=== PATIENT | male | born 1975 | race Caucasian/White ===

== ENCOUNTER 2025-04-24 10:36 | Emergency (ER) | payer OTHER, SELFPAY ==
[2025-04-24] VITALS (28 sets, daily range): BP systolic 105–154; BP diastolic 78–109; PULSE 63–130; RESP 9–20; TEMP 36.7–37.1; O2SAT 97–100; BMI 25.7
--- NOTE | 2025-04-24 10:42 | ECG_ITS ---
APPROVED REPORT Exam: Resting ECG HR:121 bpm ECG Measurements Heart Rate 121 AXES QRSd 114 QRS 92 QT 310 T 44 QTc 382 Conclusion ATRIAL FLUTTER/TACHYCARDIA WITH RAPID VENTRICULAR RESPONSE BORDERLINE RIGHT AXIS DEVIATION [QRS AXIS > 90] MODERATE INTRAVENTRICULAR CONDUCTION DELAY [110+ ms QRS DURATION] NONSPECIFIC ST & T-WAVE ABNORMALITY ABNORMAL RHYTHM ECG UNCONFIRMED REPORT Electronically signed by : ENOC QUEEN, 04/26/2025 04:21:15
[2025-04-24] MEDS: MIDAZOLAM 2MG/2ML VIAL 1 MG IV (10:49)
--- NOTE | 2025-04-24 10:58 | ECG_ITS ---
APPROVED REPORT Exam: Resting ECG HR:113 bpm ECG Measurements Heart Rate 113 AXES QRSd 132 QRS 94 QT 312 T 15 QTc 379 Conclusion ATRIAL FLUTTER/TACHYCARDIA WITH RAPID VENTRICULAR RESPONSE BORDERLINE RIGHT AXIS DEVIATION [QRS AXIS > 90] INTRAVENTRICULAR CONDUCTION DELAY [130+ ms QRS DURATION] ABNORMAL ECG UNCONFIRMED REPORT Electronically signed by : ENOC QUEEN, 04/26/2025 04:20:33
--- NOTE | 2025-04-24 11:03 | ED_ITS ---
Discharge Plan Disposition Patient Disposition: Home, Self-Care Condition: Good Referrals Follow up/Referrals: Messi Crane MD [Staff Physician, Oncology] - See instructions Herber Manzano MD [Staff Physician, Cardiology] - See instructions Provider,MD Justin [Primary Care Provider, Medical] - See instructions Activity Restrictions/Add. Instructions Additional Instructions/Restrictions: I have sent you with a referral to Dr. Manzano which you should follow-up for your atrial fibrillation. You can continue your medications as prescribed including your flecainide and metoprolol as needed. I have also sent you with a referral to hematology for your elevated hemoglobin. Return to the emergency department if your symptoms return or worsen or if you have any other acute concerns. Clinical Impressions Clinical Impression: A-fib Instructions Patient Instructions: DI for Moderate Sedation Print Language Print Language: Mauritian Discharge ED Provider: Elke Sanchez Adult HPI General Chief complaint: Arrhythmia/Palpitations Stated complaint: Ref: Hebert Gibson. A-Fib Time Seen by Provider: 04/24/25 10:40 Mode of Arrival: Ambulatory Source of Information: Patient Description of Symptoms (Recalled from ER Triage Doc. by RN): patient states he has history of afib since 2020, he has felt fluttering in his chest since 730 friday evening and he states he usually covernts on his own but this time he has not been able to. patient reports shortness of breath as well. he is extremily anxious over getting iv at this time History of Present Illness HPI narrative: Patient is a 49-year-old male with no significant past medical history who presents to the emergency department with palpitations. Patient states that he has a history of A-fib and has previously gone into A-fib for no more than 4 hours which has spontaneously resolved on its own. Patient states that he keeps abdominal and can tell exactly when he goes in and out of his irregular rhythm. Patient states that he has seen cardiology 4 years ago and has as needed metoprolol and flecainide at home. Patient states that he has never had to come to the emergency department for his A-fib in the past. Patient states that he does not have any chest pain, is not feeling short of breath. Patient has not had any nausea vomiting diarrhea. Patient has not had any recent infectious symptoms. Patient does not have any other medical problems. Patient states that he went into his irregular rhythm around 7 PM last night. Patient states that since it did not resolve he came here to the emergency department today. Related Data Allergies Allergy/AdvReac Type Severity Reaction Status Date / Time No Known Allergies Allergy Verified 04/24/25 10:53 [facility] Disclaimer: The information contained in this section may have been updated after the patient was seen, as this information can be updated by other users. Social History Smoking Status: Never smoker alcohol intake: never current occupational status: employed Travel in the last 8 weeks?: None ROS Obtained: Yes All systems reviewed & no additional complaints except as documented and Yes Systems reviewed as appropriate & no additional complaints except as documented Physical Exam General General appearance: alert and in no apparent distress Head Head exam: atraumatic, normocephalic and normal inspection Eye Eye exam: Present normal appearance, PERRL and EOMI; Absent scleral icterus ENT ENT exam: Present normal exam and normal external ear exam Neck Neck exam: Present normal inspection and full ROM Chest Chest inspection: Present normal inspection and symmetric chest wall rise Respiratory Respiratory exam: Present normal lung sounds bilaterally; Absent respiratory distress or wheezes Cardiovascular Cardiovascular exam: Present tachycardia, irregular rhythm and normal heart sounds Abdominal Exam Abdominal exam: Present soft and distention; Absent tenderness, guarding or rebound Extremities Exam Extremities exam: Present normal inspection and full ROM Back Exam Back exam: Present normal inspection and full ROM Neurological Exam Neurological exam: Present alert and oriented X3 Psychiatric Psychiatric exam: Present normal affect and normal mood Skin Skin exam: Present warm and dry Medical Decision Making Medical Records Medical records reviewed: Yes I reviewed the patient's medical records. Screening: Per USPSTF and CDC recommendations, given the prevalence of disease in our region, it is our hospital?s policy to screen for HIV and viral Hepatitis for all patients aged 18 and over and those with ongoing risk factors. Jordan Inquiry Pt receiving controlled substance: No Vital Signs: 04/24/25 10:47 04/24/25 11:00 04/24/25 11:30 Temperature 98.4 F Temperature Source Oral Pulse Rate 85 Pulse Rate [Right Radial] 127 H Respiratory Rate 16 9 L 11 L Blood Pressure 106/87 L 105/86 L Blood Pressure [Right Arm] 154/109 H Blood Pressure Mean [Right Arm] 124 Blood Pressure Source [Right Arm] Automatic Cuff Blood Pressure Position [Right Arm] Sitting 02 Sat by Pulse Oximetry 99 97 Oxygen Delivery Method Room Air Oxygen Flow Rate (LPM) 04/24/25 12:00 04/24/25 12:30 04/24/25 12:37 Temperature 98.1 F Temperature Source Oral Pulse Rate 93 H 122 H Pulse Rate [Right Radial] 127 H Respiratory Rate 19 10 L 13 Blood Pressure 122/95 H 138/101 H Blood Pressure [Right Arm] 138/101 H Blood Pressure Mean [Right Arm] 113 Blood Pressure Source [Right Arm] Automatic Cuff Blood Pressure Position [Right Arm] Supine 02 Sat by Pulse Oximetry 97 100 99 Oxygen Delivery Method Nasal Cannula Oxygen Flow Rate (LPM) 2 04/24/25 12:40 04/24/25 12:40 04/24/25 12:45 Temperature 98.1 F 98.1 F Temperature Source Oral Oral Pulse Rate 130 H Pulse Rate [Right Radial] 128 H 128 H Respiratory Rate 16 11 L 16 Blood Pressure 145/98 H Blood Pressure [Right Arm] 143/94 H 145/98 H Blood Pressure Mean [Right Arm] 110 113 Blood Pressure Source [Right Arm] Automatic Cuff Automatic Cuff Blood Pressure Position [Right Arm] Supine Supine 02 Sat by Pulse Oximetry 100 100 100 Oxygen Delivery Method Nasal Cannula Nasal Cannula Oxygen Flow Rate (LPM) 2 2 04/24/25 12:45 04/24/25 12:50 04/24/25 12:50 Temperature 98.1 F Temperature Source Oral Pulse Rate 120 H 68 Pulse Rate [Right Radial] 80 Respiratory Rate 11 L 18 14 Blood Pressure 152/96 H 144/99 H Blood Pressure [Right Arm] 152/96 H Blood Pressure Mean [Right Arm] 114 Blood Pressure Source [Right Arm] Automatic Cuff Blood Pressure Position [Right Arm] Supine 02 Sat by Pulse Oximetry 100 98 99 Oxygen Delivery Method Nasal Cannula Oxygen Flow Rate (LPM) 2 04/24/25 12:55 04/24/25 12:55 04/24/25 12:58 Temperature 98.1 F 98.1 F Temperature Source Oral Oral Pulse Rate 67 Pulse Rate [Right Radial] 81 80 Respiratory Rate 18 20 16 Blood Pressure 138/96 H Blood Pressure [Right Arm] 144/99 H 146/98 H Blood Pressure Mean [Right Arm] 114 114 Blood Pressure Source [Right Arm] Automatic Cuff Automatic Cuff Blood Pressure Position [Right Arm] Supine Supine 02 Sat by Pulse Oximetry 100 99 99 Oxygen Delivery Method Nasal Cannula Room Air Oxygen Flow Rate (LPM) 2 04/24/25 13:00 04/24/25 13:05 04/24/25 13:10 Temperature Temperature Source Pulse Rate 63 Pulse Rate [Right Radial] Respiratory Rate 12 16 10 L Blood Pressure 146/98 H 143/99 H 148/93 H Blood Pressure [Right Arm] Blood Pressure Mean [Right Arm] Blood Pressure Source [Right Arm] Blood Pressure Position [Right Arm] 02 Sat by Pulse Oximetry 98 Oxygen Delivery Method Oxygen Flow Rate (LPM) 04/24/25 13:15 04/24/25 13:20 04/24/25 13:25 Temperature Temperature Source Pulse Rate Pulse Rate [Right Radial] Respiratory Rate 13 10 L 10 L Blood Pressure 144/95 H 136/92 H 127/88 Blood Pressure [Right Arm] Blood Pressure Mean [Right Arm] Blood Pressure Source [Right Arm] Blood Pressure Position [Right Arm] 02 Sat by Pulse Oximetry Oxygen Delivery Method Oxygen Flow Rate (LPM) 04/24/25 13:30 04/24/25 13:35 04/24/25 13:40 Temperature Temperature Source Pulse Rate 76 72 Pulse Rate [Right Radial] Respiratory Rate 16 14 11 L Blood Pressure 125/84 129/84 133/83 Blood Pressure [Right Arm] Blood Pressure Mean [Right Arm] Blood Pressure Source [Right Arm] Blood Pressure Position [Right Arm] 02 Sat by Pulse Oximetry 98 99 Oxygen Delivery Method Oxygen Flow Rate (LPM) 04/24/25 13:45 04/24/25 13:50 04/24/25 13:55 Temperature Temperature Source Pulse Rate Pulse Rate [Right Radial] Respiratory Rate 11 L 11 L 13 Blood Pressure 129/89 127/89 134/85 Blood Pressure [Right Arm] Blood Pressure Mean [Right Arm] Blood Pressure Source [Right Arm] Blood Pressure Position [Right Arm] 02 Sat by Pulse Oximetry 98 Oxygen Delivery Method Oxygen Flow Rate (LPM) 04/24/25 14:00 04/24/25 14:05 04/24/25 14:10 Temperature Temperature Source Pulse Rate 78 81 Pulse Rate [Right Radial] Respiratory Rate 12 12 17 Blood Pressure 123/87 136/82 139/81 Blood Pressure [Right Arm] Blood Pressure Mean [Right Arm] Blood Pressure Source [Right Arm] Blood Pressure Position [Right Arm] 02 Sat by Pulse Oximetry 98 98 98 Oxygen Delivery Method Oxygen Flow Rate (LPM) 04/24/25 14:15 04/24/25 14:57 Temperature 98.8 F Temperature Source Pulse Rate 77 79 Pulse Rate [Right Radial] Respiratory Rate 13 20 Blood Pressure 123/78 120/80 Blood Pressure [Right Arm] Blood Pressure Mean [Right Arm] Blood Pressure Source [Right Arm] Blood Pressure Position [Right Arm] 02 Sat by Pulse Oximetry 98 Oxygen Delivery Method Oxygen Flow Rate (LPM) Lab Data Lab results reviewed: Yes I reviewed the patient's lab results. Lab Results 04/24/25 10:45: WBC 10.9 H, RBC 6.85 H, Hgb 21.4 H, Hct 59.6 H, MCV 87.0, MCH 31.2, MCHC 35.9 H, RDW 13.2, Plt Count 293, MPV 9.7, Neut % (Auto) 59.2, Lymph % (Auto) 30.0, [place] % (Auto) 8.0, Eos % (Auto) 1.2, Baso % (Auto) 1.1, Neut # (Auto) 6.5, Lymph # (Auto) 3.3, [place] # (Auto) 0.9, Eos # (Auto) 0.1, Baso # (Auto) 0.1, D-Dimer 0.30, Sodium 137, Potassium 4.4, Chloride 102, Carbon Dioxide 26, Anion Gap 13.4, BUN 22 H, Creatinine 1.30 H, Estimated Creat Clear 90, Estimated GFR 59, Est GFR ( Amer) 72, Glucose 121 H, Calcium 10.2, Magnesium 2.1, Total Bilirubin 1.7 H, AST 48, ALT 38, Alkaline Phosphatase 84, Troponin I 0.02, Total Protein 8.9 H, Albumin 5.1 H, Globulin 3.8 H, Albumin/Globulin Ratio 1.3, TSH 5.63 H, Free T4 1.04, HCV Ab ALCIRA w/Rflx PCR Qn Negative, HIV Ag/Ab Combo Qual Negative 04/24/25 13:41: Troponin I < 0.01 04/24/25 10:45 04/24/25 10:45 Orders (Tests/Meds): ED MEDICATIONS Discontinued Medications Generic Name Dose Route Start Last Admin Trade Name Freq PRN Reason Stop Dose Admin Etomidate 10 mg 04/24/25 11:58 04/24/25 12:38 Etomidate 40mg/20ml Vial IV 04/24/25 11:59 10 mg ONCE ONE Administration Etomidate 10 mg 04/24/25 12:45 04/24/25 12:45 Etomidate 40mg/20ml Vial IV 04/24/25 12:46 10 mg ONCE ONE Administration Magnesium Sulfate 2 gm in 50 mls @ 50 mls/hr 04/24/25 10:59 04/24/25 11:04 Magnesium Sulfate 2gm/50ml Premix IV 04/24/25 11:58 50 mls/hr ONCE ONE Administration Midazolam HCl 1 mg 04/24/25 10:47 04/24/25 10:49 Midazolam 2mg/2ml Vial IV 04/24/25 10:48 1 mg ONCE ONE Administration Midazolam HCl 2 mg 04/24/25 12:41 04/24/25 12:43 Midazolam 2mg/2ml Vial IV 04/24/25 12:42 2 mg ONCE ONE Administration ORDERS Category Date Time Status CBC w/Auto Diff [Complete Blood Count Auto Diff] Stat Lab 04/24/25 10:45 Completed CMP [Comprehensive Metabolic Panel] Stat Lab 04/24/25 10:45 Completed D-Dimer Stat Lab 04/24/25 10:45 Completed Free T4 (Free Thyroxine) Stat Lab 04/24/25 10:45 Completed HIV Combo Stat Lab 04/24/25 10:45 Completed Hepatitis C Ab Qual. W/ RFX Stat Lab 04/24/25 10:45 Completed MAG [Magnesium] Stat Lab 04/24/25 10:45 Completed TSH [Thyroid Stimulating Hormone] Stat Lab 04/24/25 10:45 Completed Trop I [Troponin I] Stat Lab 04/24/25 10:45 Completed Troponin I Q3H Lab 04/24/25 13:41 Completed Medical Decision Narrative: Patient is an otherwise healthy 49-year-old male with a history of A-fib who presents to the emergency department with concerns for palpitations. On arrival, patient was in A-fib with RVR, vital signs were otherwise unremarkable, patient was hemodynamically stable. Differential includes but not limited to: Dehydration, electrolyte abnormalities, ACS/CT, pulmonary embolism, thyroid disease, amongst others. Labs were reviewed and interpreted by myself, CBC is unremarkable except for mildly elevated hemoglobin of 21. CMP showed mildly elevated creatinine at 1.3 otherwise unremarkable. Thyroid studies were unremarkable. Magnesium was normal. Initial troponin mildly elevated, second troponin less than 0.01. D- dimer normal. Patient's initial EKG showed a flutter heart rate [address] or T wave changes concerning for ischemia. Repeat EKG was obtained which showed similar pattern of atrial flutter with a rate of [address] or T wave changes concerning for ischemia. After lengthy discussion with the patient regarding rate control versus cardioversion, the patient elected to be cardioverted. Patient's symptoms started less than 48 hours ago. Although patient is not anticoagulated given less than 48 hours since symptom onset I felt that cardioversion was appropriate. Patient was given IV etomidate and IV Versed and patient was consciously sedated at the bedside and patient was cardioverted with 200 J. Single cardioversion was done and patient went into normal sinus rhythm. Patient maintained normal sinus rhythm in the emergency department. Patient has a Chadsvasc score of 0 therefore prophylactic anticoagulation for stroke reduction was not felt to be indicated. Patient already with as needed metoprolol and flecainide at home therefore at this time I felt that patient was appropriate for discharge with outpatient follow-up with cardiology. Procedures Miscellaneous Procedure Procedure Performed: Bedside cardioversion was done with 200 J. Synchronized cardioversion for a flutter. Patient was given IV etomidate and IV Versed at bedside. Patient tolerated the procedure well converted to normal sinus rhythm. Critical Care Critical Care Time Critical Care Time: Yes Attestation: On 04/24/25, the high probability of a clinically significant, sudden or life threatening deterioration of the following system(s) required my full and direct attention, intervention and personal management. The time I documented below is in addition to time spent performing reported procedures but includes the following listed in this critical care notation. Total Time Total Critical Care Time: 30
[2025-04-24] MEDS: MAGNESIUM SULFATE IN WATER 2 GM/50 ML PIGGYBACK IV (11:04)
--- OUTSIDE RECORDS SUMMARY | 2025-04-24 11:10 | XMS_ITS | Clinical Summary ---
Author Organization [facility] Address [address] [place] [address] Care Team Providers Care Case Sealer Name Role Phone Gordo Oliveira MD Primary Care Provider [phone] Allergies Active Allergy Reactions Criticality Noted Date Comments Sulfa Antibiotics Hives 10/30/2021 Medications metoprolol tartrate (LOPRESSOR) 25 MG tablet Take 1 tablet by mouth 2 (Two) Times a Day As Needed (palpitations). 180 tablet 3 2 Active flecainide (TAMBOCOR) 150 MG tablet Take 1 tablet by mouth 2 (Two) Times a Day As Needed (palpitations). For Atrial fibrillation 90 tablet 3 2 Active Active Problems Problem Noted Date Diagnosed Date PAF (paroxysmal atrial fibrillation) 01/21/2022 Tachycardia 10/29/2021 Overview (01/18/2022): Holter monitor returned unused Family History Medical History Relation Name Comments Cancer Father No Known Problems Mother Relation Name Status Comments Father Mother Alive Social History Tobacco Use Types Packs/Day Years Used Date Smoking Tobacco: Former Cigarettes Q uit: 2000 Smokeless Tobacco: Former Quit: 2001 Alcohol Use Standard Drinks/Week Comments Yes 0 (1 standard drink = 0.6 oz pur e alcohol) 1 nightly Abuse Screen Answer Date Recorded Unsafe at Home or Work/School Not on file Feels Threatened by Someone? Not on file Does Anyone Keep You from Co ntacting Others or Doint Things Outside the Home? Not on file 07/04/2023 Physical Sign of Abuse Present Not on file 1 Housing Stability Answer Date Recorded Current Living Arrangements Not on file 06/22 Potentially Unsafe Housing Conditions Not on earl e 07/04/2023 Family and Community Support Answer Basim e Recorded Help with Day-to-Day Activities Not on file 07/04/2023 Lonely or Isolated Not on file 07/04/2023 Employment Answer Date Recorded Do you want help finding or keeping work or a luis b? Not on file 07/04/2023 Disabilities Answer Date Recorded Concentrating, Remembering, or Making Decisions Difficulty Not on file 07/04/2023 Doing Errands Independently Difficulty Not on fi le 07/04/2023 Education Answer Date Recorded Help with school or training? Not on file Preferred Language Not on file 07/04/2023 Sex and Gender Information Value Date Recorded Sex Assigned at Not on file Legal Sex Male 4:22 PM EST Gender Identity Not on file Sexual Orientation Not on file Last Filed Vital Signs Vital Sign Reading Time Taken Comments Blood Pressure 126/74 01/24/2022 1:33 PM EDT Pulse 85 01/21/2022 8:39 AM EDT Temperature - - Respiratory Rate - - Oxygen Saturation 96% 01/21/2022 8:39 AM EDT Inhaled Oxygen Concentration - - Weight 95.7 kg (211 lb) 01/24/2022 1:33 PM EDT Height 188 cm (6' 2 ) 01/24/2022 1:33 PM EDT Body Mass Index 27.09 01/24/2022 1:33 PM EDT Plan of Treatment Health Maintenance Due Date Last Done Comments TDAP/TD VACCINES (1 - Tdap) 1996 ANNUAL PHYSICAL 10/29/2021 HEPATITIS C SCREENING 10/29/2021 COLOGUARD 2022 COLON CANCER SCREENING 5 YEA R SIGMOIDOSCOPY 2022 COLONOSCOPY 2022 COLORECTAL CANCER SCREENING 2022 CT COLONOGRAPHY 2022 FECAL OCCULT BLOOD TEST 2022 FIT Testing (1 year) 2022 COVID-19 Vaccine (3 - 2023-2 5 season) 2024 06/28/2021, 05/31/2021 INFLUENZA VACCINE 06/22/2025 Pneumococcal Vaccine 0-49 Aged Out No longer eligible based on patient's age to complete this topic Insurance [facility] PPO Care Teams Case Sealer Relationship Specialty Start Date End Date Gordo Oliveira MD [address] [place] [address] PCP - General Internal Medicine 10/24/21
[2025-04-24 11:11] LABS: Hematocrit 59.6 % (42.0-52.0); Immature Granulocytes % 0.5 %; Mean Corpuscular HGB Conc 35.9 g/dL (31.8-35.4); Mean Corpuscular Hemoglobin 31.2 pg (27.0-31.2); Mean Corpuscular Volume 87.0 fl (80-94); Nucleated Red Blood Cells % 0 %; Platelet Count 293 K/mm3 (142-424); Red Blood Count 6.85 M/mm3 (4.60-6.20); Red Cell Distribution Width-SD 38.8 fL; White Blood Count 10.9 K/mm3 (4.8-10.8)
[2025-04-24 11:19] LABS: Alanine Aminotransferase 38 U/L (12-78); Albumin Level 5.1 g/dl (3.5-5.0); Albumin/Globulin Ratio 1.3 (1.1-1.8); Alkaline Phosphatase 84 U/L (38-126); Anion Gap 13.4 mEq/L (5-15); Aspartate Amino Transferase 48 U/L (17-59); Bilirubin,Total 1.7 mg/dl (0.2-1.3); Blood Urea Nitrogen 22 mg/dl (9-20); Calcium 10.2 mg/dl (8.4-10.2); Carbon Dioxide 26 mmol/L (22.0-30.0); Chloride 102 mmol/L (98-107); Creatinine Clearance Estimated 90 mL/min (50-200); Creatinine,Serum 1.30 mg/dl (0.66-1.25); Estimated Glomerular Filt Rate 59 ml/min (>60); GFR (African American) 72 ML/MIN (>60); Globulin 3.8 g/dL (1.3-3.2); Glucose 121 mg/dl (74-100); Magnesium 2.1 mg/dl (1.6-2.3); Potassium 4.4 mmoL/L (3.5-5.1); Sodium 137 mmol/L (136-145); Total Protein,Serum 8.9 g/dl (6.3-8.2)
[2025-04-24 11:24] LABS: D-Dimer 0.30 ug/mL (0.0-0.5)
[2025-04-24 11:31] LABS: Troponin I 0.02 ng/ml (0.00-0.034)
[2025-04-24 11:38] LABS: Hemoglobin 21.4 g/dL (14.1-18.0)
[2025-04-24 11:49] LABS: Thyroid Stimulating Hormone 5.63 uIU/mL (0.465-4.68)
[2025-04-24] MEDS: ETOMIDATE 40MG/20ML VIAL 10 MG IV ×2 (12:38→12:45)
[2025-04-24] MEDS: MIDAZOLAM 2MG/2ML VIAL 2 MG IV (12:43)
--- NOTE | 2025-04-24 12:48 | ECG_ITS ---
APPROVED REPORT Exam: Resting ECG HR:84 bpm ECG Measurements Heart Rate 84 AXES AZ 157 P 75 QRSd 113 QRS 86 QT 377 T 43 QTc 418 Conclusion SINUS RHYTHM RIGHT ATRIAL ENLARGEMENT [0.3mV P-WAVE] MODERATE INTRAVENTRICULAR CONDUCTION DELAY [110+ ms QRS DURATION] ABNORMAL ECG UNCONFIRMED REPORT Electronically signed by : ENOC QUEEN, 04/26/2025 04:20:43
[2025-04-24 12:49] LABS: Hepatitis C Ab Qual. W/ RFX NEGATIVE (Negative)
[2025-04-24 13:27] LABS: Free T4 (Free Thyroxine) 1.04 ng/dl (0.78-2.19)
[2025-04-24 14:19] LABS: Troponin I < 0.01 ng/ml (0.00-0.034)
== END 2025-04-24 15:00 | disposition home or self-care (01) ==
PROVIDERS: Emergency Provider Student in an Organized Health Care Education/Training Program
DX: I48.91 Unspecified atrial fibrillation (principal); F41.9 Anxiety disorder, unspecified
CPT/HCPCS: 80053; 83735; 84439; 84443; 84484; 85025; 85378; 86803; 87389; 93005; 96365; 96375; 96376; 99152; 99291; J2250; J3475

== ENCOUNTER 2025-05-04 11:58 | Outpatient (CLI) | payer OTHER, SELFPAY ==
--- OUTSIDE RECORDS SUMMARY | 2025-05-04 11:59 | XMS_ITS | Continuity of Care Document ---
Author Organization [facility]. If a dditional information is needed, contact Health Information Management at [phone] Address [address] [place] [address] Phone Care Team Providers Care Auto Vinyl Top Installer Name Role Phone Unavailable Unavailable Unavailable Allergies and Adverse Reactions No Known Allergies(Allergy) Onset: 01-Jul-2014 Medications No Home Medications_[id number] Start:01-Jul-2014
--- OUTSIDE RECORDS SUMMARY | 2025-05-04 12:01 | XMS_ITS | Encounter Summary ---
Author Organization [facility] Address [address] [place] [address] Care Team Providers Care Acoustic Intelligence Specialist Name Role Phone Unavailable Primary Care Provider Unavailabl e Reason for Visit * Reason Onset Date Comments NEW PATIENT APPOINTMENT 04/29/2025 Encounter Details Date Type Department Care Team ([facility] Contact Info) Description 04/29/2025 Telephone [facility] - Cardiovascular Medicine [address] [facility] [address] [place] [address] Markie Salgado MD [address] [facility] [address] [place] [address] NEW PATIENT APPOINTMENT Social History Tobacco Use Types Packs/Day Years Used Date Smoking Tobacco: Never Assessed Sex and Gender Information Value Date Recorded Sex Assigned at Not on file Legal Sex Male 8:17 AM EDT Gender Identity Not on file Sexual Orientation Not on file documented as of this encounter Miscellaneous Notes * Telephone Encounter - April Monreal - 04/29/2025 9:06 AM EDT Called pt and lvm for pt to call us back for New Pt appt from referral received for EP for possibleAblation documented in this encounter Plan of Treatment Upcoming Encounters Date Type Department Care Team ([facility] Contact Info) Description 06/07/2025 2:45 PM EDT Office Visit [facility] - Cardiovascular Medicine [address] [place] [address] Kota Zuniga MD [address] [facility], [address] [address] documented as of this encounter Visit Diagnoses Not on filedocumented in this encounter
--- OUTSIDE RECORDS SUMMARY | 2025-05-04 12:01 | XMS_ITS | Clinical Summary ---
Author Organization [facility] Address [address] [place] [address] Care Team Providers Care Modeling Agent Name Role Phone Pcp, Pt Declined Primary Care Provider Unavailab le Encounters Date Type Department Care Team Description 04/29/2025 Telephone [facility] - Cardiovascular Medicine [address] [phone] Markie Salgado MD NEW PATIENT APPOINTMENT from Last 3 Months Social History Tobacco Use Types Packs/Day Years Used Date Smoking Tobacco: Never Assessed Sex and Gender Information Value Date Recorded Sex Assigned at Not on file Legal Sex Male 8:17 AM EDT Gender Identity Not on file Sexual Orientation Not on file Plan of Treatment Upcoming Encounters Date Type Department Care Team (Late st Contact Info) Description 06/07/2025 2:45 PM EDT Office Visit [facility] - Cardiovascular Medicine [address] [place] [address] [phone] Kota Zuniga MD [address] [facility] [address] [place] [address] Health Maintenance Due Date Last Done Comments CT Colonography 1977 Colonoscopy 1977 Colorectal Cancer Screening 1977 FIT-DNA (Cologuard) 1977 FIT 1977 FOBT 1977 HIV Screening 1977 Hepatitis C Screening 1977 Lipid Panel 1977 Sigmoidoscopy 1977 MMR Vaccines (1 of 1 - Standard series) 1978 Hepatitis B Screening 12/31/1995 DTaP/Tdap/Td Vaccines (1 - Tdap) 1996 Hepatitis B Vaccines (1 of 3 - 19+ 3-dose series) 1996 COVID-19 Vaccine (3 - 2023-2 5 season) 2024 06/28/2021, 05/31/2021 Depression Risk Screening 09/22/2024 SDOH Screening 09/22/2024 Influenza Vaccine (#1) 2025 Zoster Vaccines (1 of 2) 12/31/2027 HIB Vaccines Aged Out No longer eligi ble based on patient's age to complete this topic HPV Vaccines Aged Out No longer eligi ble based on patient's age to complete this topic Hepatitis A Vaccines Aged Out No long er eligible based on patient's age to complete this topic IPV Vaccines Aged Out No longer eligi ble based on patient's age to complete this topic Meningococcal B Vaccine Aged Out No l onger eligible based on patient's age to complete this topic Meningococcal Vaccine Aged Out No bo verna eligible based on patient's age to complete this topic Pneumococcal Vaccine Aged Out No long er eligible based on patient's age to complete this topic Rotavirus Vaccines Aged Out No longer eligible based on patient's age to complete this topic Insurance [facility] [address] Care Teams Modeling Agent Relationship Specialty Start Date End Date Pcp, Pt Declined PCP - General 05/03/25
--- OUTSIDE RECORDS SUMMARY | 2025-05-04 12:01 | XMS_ITS | Clinical Summary ---
Author Organization [facility] Address [address] [place] [address] Care Team Providers Care Nematology Teacher Name Role Phone Gordo Oliveira MD Primary Care Provider [phone] Allergies Active Allergy Reactions Criticality Noted Date [...] patient's age to complete this topic Insurance [facility] PPO Care Teams Nematology Teacher Relationship Specialty Start Date End Date Gordo Oliveira MD [address] [place] [address] PCP - General Internal Medicine 10/24/21
[2025-05-04 12:06] VITALS: BMI 26.6
[2025-05-04 12:30] VITALS: BP 123/80; PULSE 58; RESP 16; O2SAT 99
[2025-05-04 12:33] VITALS: BP 103/69; PULSE 61; RESP 16; O2SAT 99
[2025-05-04 12:36] VITALS: BP 121/62; PULSE 62; RESP 16; O2SAT 99
[2025-05-04] MEDS: SODIUM CHLORIDE 0.9% 10ML SYR (RAD ONLY) 10 ML IV (12:50)
[2025-05-04] MEDS: 0.9 % SODIUM CHLORIDE 50 ML VIAL IV (12:50)
[2025-05-04] MEDS: IOPAMIDOL-370 (76%);100ML BOTTLE 85 ML IV (12:50)
== END 2025-05-04 23:59 | disposition home or self-care (01) ==
PROVIDERS: PCP Internal Medicine; Visit Provider Internal Medicine
DX: I25.10 Atherosclerotic heart disease of native coronary artery without angina pectoris (principal); I48.0 Paroxysmal atrial fibrillation; Q67.6 Pectus excavatum; Z92.89 Personal history of other medical treatment
CPT/HCPCS: 75574; Q9967